=== PATIENT | female | born 1960 | race Caucasian/White ===

== ENCOUNTER 2025-01-15 21:31 | Inpatient (IN) | payer MEDICAID ==
[~2025-01-15] VITALS: Ht 154.9 cm; Wt 54.4 kg
[2025-01-15 23:17] LABS: BASOPHILS # (AUTO) 0.1 K/uL (0.0-0.2); BASOPHILS % (AUTO) 1.2 % (0.0-2.0); EOSINOPHILS # (AUTO) 0.1 K/uL (0.0-0.7); HEMATOCRIT 41 % (33-45); HEMOGLOBIN 14.1 g/dL (11.5-14.8); LYMPHOCYTES # (AUTO) 1.8 K/uL (0.8-4.8); MEAN CORPUSCULAR HEMOGLOBIN 31 PG (26.0-33.0); MEAN CORPUSCULAR HGB CONC 34 g/dl (31.0-36.0); MEAN CORPUSCULAR VOLUME 90 fL (82-100); MONOCYTES # (AUTO) 0.4 K/uL (0.1-1.30); MONOCYTES % (AUTO) 8.9 % (2.0-12.0); NEUTROPHILS # (AUTO) 2.6 K/uL (1.8-8.9); NEUTROPHILS % (AUTO) 51.9 % (43.0-81.0); PLATELET COUNT (AUTO) 259 K/uL (150-450); RED BLOOD CELL COUNT(AUTO) 4.56 MIL/uL (4.0-5.2); RED CELL DISTRIBUTION WIDTH 13.8 % (11.5-15.0)
[2025-01-15 23:50] LABS: CALCIUM, SERUM 9.3 mg/dL (8.5-10.1); CREATININE 0.8 mg/dL (0.6-1.3); POTASSIUM 3.9 mmol/L (3.5-5.1)
[2025-01-16] MEDS ORDERED: LEVETIRACETAM (500MG) 500 MG/5 ML VIAL IV ONE (00:01)
[2025-01-16] MEDS: LEVETIRACETAM (500MG) 500 MG in IV NS 0.9% 100 ML IV SCH (00:03)
[2025-01-16 00:04] LABS: BILIRUBIN,TOTAL 0.6 mg/dL (0.2-1.0); TOTAL PROTEIN, SERUM 7.1 g/dL (6.4-8.2)
[2025-01-16 01:41] LABS: APPEARANCE,URINE CLEAR (CLEAR); BILIRUBIN,URINE NEGATIVE (NEGATIVE); BLOOD, URINE NEGATIVE Ery/uL (NEGATIVE); COLOR,URINE YELLOW (YELLOW); KETONES,URINE NEGATIVE (NEGATIVE); LEUKOCYTE ESTERASE ,URINE 2+ (NEGATIVE); NITRITE, URINE POSITIVE (NEGATIVE); PH,URINE 6.5 (5.0-8.0); PROTEIN,URINE NEGATIVE (NEGATIVE); UGLUCOSE NEGATIVE (NEGATIVE); UROBILINOGEN,URINE 0.2 EU/dL (0.2)
[2025-01-16 02:04] LABS: RBC,URINE 0-2 /HPF (0-2); WBC,URINE 21-50 /HPF (0-3)
[2025-01-16 02:05] LABS: ADD URINE CULTURE YES; BACTERIA,URINE Many /HPF (None Seen)
[2025-01-16 02:30] VITALS: BP 146/73; TEMP 97.7; O2SAT 99
[2025-01-16] MEDS ORDERED: MAG HYDROX/AL HYDROX/SIMETH 30 ML UDC PO PRN (02:30)
[2025-01-16] MEDS ORDERED: TEMAZEPAM 15 MG CAPSULE PO PRN (02:30)
[2025-01-16] MEDS ORDERED: LORAZEPAM INJ 2 MG/ML VIAL IV PRN (02:30)
[2025-01-16] MEDS ORDERED: MAGNESIUM HYDROXIDE 30 ML UDC PO PRN (02:30)
[2025-01-16] MEDS ORDERED: HYDROCODONE/APAP 5/325MG TABLET PO PRN (02:30)
[2025-01-16] MEDS ORDERED: ONDANSETRON HCL/PF 4 MG/2 ML VIAL IVP PRN (02:30)
[2025-01-16] MEDS ORDERED: Z GUARD REMEDY 4 OZ OINT TP PRN (02:30)
[2025-01-16] MEDS: CEFTRIAXONE 1GM BAG (ER ONLY) 50 ML IV ONE (02:43)
[2025-01-16] MEDS: IV NS 0.9% 1,000 ML IV PRN (02:46)
[2025-01-16] MEDS: CEFTRIAXONE 1 G in IV D5W 50 ML IV STA (02:47)
[2025-01-16] MEDS ORDERED: CEFTRIAXONE 1 G in IV D5W 50 ML IV SCH ×3 (03:00→23:00)
[2025-01-16 04:00] VITALS: BP 128/67; TEMP 97.5; O2SAT 99
[2025-01-16] MEDS: ACETAMINOPHEN 325 MG TABLET PO PRN (06:45)
[2025-01-16] MEDS: PANTOPRAZOLE 40 MG TABLET.DR PO SCH (07:40)
[2025-01-16 08:00] VITALS: BP 116/65; TEMP 97.7; O2SAT 100
[2025-01-16] MEDS: LEVETIRACETAM (500MG) 1,000 MG in IV NS 0.9% 90 ML IV SCH (08:38)
[2025-01-16] MEDS: ENOXAPARIN SODIUM 40 MG/0.4 ML DISP.SYRIN SQ SCH (09:12)
[2025-01-16] MEDS ORDERED: LEVE500T20 PO (09:17)
[2025-01-16] MEDS ORDERED: MAGN400T52 PO (09:17)
[2025-01-16] MEDS ORDERED: CALC-953 PO (09:17)
[2025-01-16] MEDS ORDERED: POLY15DR31 EACHEYE (09:17)
[2025-01-16] MEDS ORDERED: ALEN70TA80 PO (09:17)
[2025-01-16] MEDS ORDERED: SERT25TA5 PO (09:17)
[2025-01-16] MEDS ORDERED: ACET-637 PO (09:17)
[2025-01-16] MEDS ORDERED: ACET325T53 PO (09:17)
[2025-01-16] MEDS ORDERED: DICL100G34 TP (09:17)
[2025-01-16] MEDS ORDERED: LAMO100T17 PO (09:17)
[2025-01-16] MEDS ORDERED: ACETAMINOPHEN ES 500 MG TABLET PO PRN (10:30)
[2025-01-16] MEDS: SERTRALINE HCL 25 MG TABLET PO SCH (11:26)
[2025-01-16 12:24] VITALS: BP 126/70; TEMP 98.1; O2SAT 100
[2025-01-16 14:33] LABS: THYROID STIMULATING HORMONE 1.26 uIU/mL (0.358-3.74)
[2025-01-16 16:00] VITALS: BP 121/70; TEMP 98.2; O2SAT 96
[2025-01-16] MEDS: LEVETIRACETAM (250 MG) 250 MG TABLET PO SCH (16:32)
[2025-01-16 20:00] VITALS: BP 117/68; TEMP 98.6; O2SAT 99
[2025-01-16] MEDS: CEFTRIAXONE 1 G in IV D5W 50 ML IV SCH (22:23)
[2025-01-17] VITALS: BP_SYST 105; BP_SYST 117; BP_DIAS 47; BP_DIAS 68; TEMP 98.1; TEMP 98.6; O2SAT 99
[2025-01-17 04:00] VITALS: BP 115/69; TEMP 97.7; O2SAT 98
[2025-01-17 07:26] LABS: BASOPHILS % (AUTO) 0.9 % (0.0-2.0); EOSINOPHILS # (AUTO) 0.1 K/uL (0.0-0.7); HEMATOCRIT 42 % (33-45); HEMOGLOBIN 14.2 g/dL (11.5-14.8); LYMPHOCYTES # (AUTO) 1.3 K/uL (0.8-4.8); LYMPHOCYTES % (AUTO) 30.1 % (20.0-44.0); MEAN CORPUSCULAR HEMOGLOBIN 31 PG (26.0-33.0); MEAN CORPUSCULAR HGB CONC 34 g/dl (31.0-36.0); MEAN CORPUSCULAR VOLUME 91 fL (82-100); MONOCYTES # (AUTO) 0.3 K/uL (0.1-1.30); MONOCYTES % (AUTO) 7.5 % (2.0-12.0); NEUTROPHILS # (AUTO) 2.5 K/uL (1.8-8.9); NEUTROPHILS % (AUTO) 58.5 % (43.0-81.0); PLATELET COUNT (AUTO) 236 K/uL (150-450); RED BLOOD CELL COUNT(AUTO) 4.66 MIL/uL (4.0-5.2); RED CELL DISTRIBUTION WIDTH 13.6 % (11.5-15.0); WHITE BLOOD COUNT (AUTO) 4.3 K/uL (4.3-11.0)
[2025-01-17 07:43] LABS: CALCIUM, SERUM 8.4 mg/dL (8.5-10.1); CREATININE 0.7 mg/dL (0.6-1.3); MAGNESIUM 2.3 mg/dL (1.8-2.4); PHOSPHORUS 3.5 mg/dL (2.5-4.9); POTASSIUM 3.9 mmol/L (3.5-5.1)
[2025-01-17 07:50] LABS: THYROID STIMULATING HORMONE 2.27 uIU/mL (0.358-3.74)
[2025-01-17 08:00] VITALS: BP 124/63; TEMP 98.1; O2SAT 99
[2025-01-17] MEDS: LamoTRIgine 100 MG TABLET PO SCH (08:17)
[2025-01-17] MEDS: MAGNESIUM OXIDE 400 MG TABLET PO SCH (08:17)
[2025-01-17 12:00] VITALS: BP 117/61; TEMP 98.1; O2SAT 98
[2025-01-17 16:00] VITALS: BP 124/66; TEMP 97.9; O2SAT 97
[2025-01-17 20:00] VITALS: BP_SYST 104; BP_SYST 124; BP_DIAS 67; TEMP 97.7; O2SAT 95
[2025-01-18] VITALS: BP 122/63; TEMP 98.1; O2SAT 100
[2025-01-18 00:25] VITALS: TEMP 98.1
[2025-01-18 04:00] VITALS: BP 113/64; TEMP 98; O2SAT 98
[2025-01-18 07:39] LABS: BASOPHILS % (AUTO) 0.9 % (0.0-2.0); EOSINOPHILS # (AUTO) 0.1 K/uL (0.0-0.7); EOSINOPHILS % (AUTO) 3.2 % (0.0-6.0); HEMATOCRIT 42 % (33-45); HEMOGLOBIN 14.1 g/dL (11.5-14.8); LYMPHOCYTES # (AUTO) 1.4 K/uL (0.8-4.8); LYMPHOCYTES % (AUTO) 32.7 % (20.0-44.0); MEAN CORPUSCULAR HEMOGLOBIN 30 PG (26.0-33.0); MEAN CORPUSCULAR HGB CONC 33 g/dl (31.0-36.0); MEAN CORPUSCULAR VOLUME 91 fL (82-100); MONOCYTES # (AUTO) 0.3 K/uL (0.1-1.30); MONOCYTES % (AUTO) 8.2 % (2.0-12.0); NEUTROPHILS # (AUTO) 2.3 K/uL (1.8-8.9); PLATELET COUNT (AUTO) 236 K/uL (150-450); RED BLOOD CELL COUNT(AUTO) 4.63 MIL/uL (4.0-5.2); RED CELL DISTRIBUTION WIDTH 13.6 % (11.5-15.0); WHITE BLOOD COUNT (AUTO) 4.2 K/uL (4.3-11.0)
[2025-01-18 07:57] LABS: CALCIUM, SERUM 8.7 mg/dL (8.5-10.1); CREATININE 0.6 mg/dL (0.6-1.3); POTASSIUM 3.8 mmol/L (3.5-5.1)
[2025-01-18 08:10] LABS: FOLIC ACID 15.8 ng/mL (>3.0)
== END 2025-01-18 13:00 | DRG 53 ==
LOC: ER 21:36 → TELE 01-16 01:39
PROVIDERS: ADMIT Nurse Practitioner Acute Care; ATTEND Internal Medicine
DX: G40.909 Epilepsy, unspecified, not intractable, without status epilepticus (principal); F32.3 Major depressive disorder, single episode, severe with psychotic features; F03.90 Unspecified dementia, unspecified severity, without behavioral disturbance, psychotic disturbance, mood disturbance, and anxiety; N39.0 Urinary tract infection, site not specified; F03.93 Unspecified dementia, unspecified severity, with mood disturbance; Z95.0 Presence of cardiac pacemaker; I49.9 Cardiac arrhythmia, unspecified; B96.89 Other specified bacterial agents as the cause of diseases classified elsewhere
CPT/HCPCS: 36415; 70450-TC; 71045-TC; 80048-TC; 80053-TC; 80177; 81001; 82607-TC; 83735-TC; 83880; 83921; 84100-TC; 84425; 84443-TC; 84484-TC; 85025-TC; 87040-TC; 87081-TC; 87086-TC; 87186-TC; 97110-TC; 97116-TC; 97530-TC; A4223; G0378; J0696; J1650; J1953; J7030; J7060

== ENCOUNTER 2025-05-24 17:31 | Emergency (ER) | payer MEDICAID ==
[~2025-05-24] VITALS: Ht 147.3 cm; Wt 44.5 kg
[~2025-05-24 17:31] MED LIST: ACET-637 PO; ACET325T53 PO; ALEN70TA80 PO; CALC-953 PO; DICL100G34 TP; LAMO100T17 PO; LEVE500T20 PO; MAGN400T52 PO; POLY15DR31 EACHEYE; SERT25TA5 PO
[2025-05-24] MEDS ORDERED: ASPIRIN 81 MG TAB.CHEW ONE (18:02)
[2025-05-24] MEDS: ASPIRIN 81 MG TAB.CHEW PO ONE (18:05)
[2025-05-24 18:37] LABS: PLATELET COUNT (AUTO) 232 K/uL (150-450); RED BLOOD CELL COUNT(AUTO) 5.02 MIL/uL (4.0-5.2); RED CELL DISTRIBUTION WIDTH 14.0 % (11.5-15.0); WHITE BLOOD COUNT (AUTO) 5.3 K/uL (4.3-11.0)
[2025-05-24 18:47] LABS: CALCIUM, SERUM 9.4 mg/dL (8.5-10.1); CREATININE 0.7 mg/dL (0.6-1.3); SODIUM SERUM 141 mmol/L (136-145); UREA NITROGEN, BLOOD 18 mg/dL (7-18)
[2025-05-24 22:23] VITALS: BP 125/60; TEMP 98; O2SAT 98
== END 2025-05-24 22:24 | disposition home or self-care (01) ==
LOC: ER 17:38
DX: R07.89 Other chest pain (principal); F03.90 Unspecified dementia, unspecified severity, without behavioral disturbance, psychotic disturbance, mood disturbance, and anxiety; F32.A Depression, unspecified; Z79.899 Other long term (current) drug therapy
CPT/HCPCS: 36415; 71045-TC; 80048-TC; 84484-TC; 85025-TC

== ENCOUNTER 2025-09-26 06:05 | Inpatient (IN) | payer MEDICAID ==
[~2025-09-26] VITALS: Ht 154.9 cm; Wt 55.3 kg
[2025-09-26] MEDS ORDERED: PANT40TA2 PO (06:25)
[2025-09-26] MEDS ORDERED: SERT25TA PO (06:25)
[2025-09-26] MEDS ORDERED: HYDR-3972 PO (06:25)
[2025-09-26] MEDS ORDERED: DIVA-78 PO (06:25)
[2025-09-26 06:42] LABS: PLATELET COUNT (AUTO) 218 K/uL (150-450); RED BLOOD CELL COUNT(AUTO) 4.85 MIL/uL (4.0-5.2); RED CELL DISTRIBUTION WIDTH 13.9 % (11.5-15.0); WHITE BLOOD COUNT (AUTO) 6.5 K/uL (4.3-11.0)
[2025-09-26 06:52] LABS: CALCIUM, SERUM 9.3 mg/dL (8.5-10.1); CREATININE 0.7 mg/dL (0.6-1.3); SODIUM SERUM 140 mmol/L (136-145); UREA NITROGEN, BLOOD 18 mg/dL (7-18)
[2025-09-26 06:54] LABS: PHOSPHORUS 2.7 mg/dL (2.5-4.9)
[2025-09-26 06:56] LABS: ALCOHOL, BLOOD < 10 mg/dL (0-10)
[2025-09-26] MEDS ORDERED: DIVA-76 PO (08:01)
[2025-09-26] MEDS ORDERED: CRAN425C6 PO (08:01)
[2025-09-26] MEDS ORDERED: MAGN400O6 PO (08:01)
[2025-09-26 08:22] VITALS: O2SAT 97
[2025-09-26 08:22] LABS: APPEARANCE,URINE CLEAR (CLEAR); BLOOD, URINE TRACE-INTA Ery/uL (NEGATIVE); LEUKOCYTE ESTERASE ,URINE NEGATIVE (NEGATIVE); NITRITE, URINE NEGATIVE (NEGATIVE); UGLUCOSE NEGATIVE (NEGATIVE)
[2025-09-26 08:27] LABS: ADD URINE CULTURE NO; SQUAMOUS EPITHELIAL CELL,UR Moderate /HPF (None Seen)
[2025-09-26 08:31] LABS: AMPHETAMINE, URINE NEGATIVE (NEGATIVE); BARBITURATE, URINE NEGATIVE (NEGATIVE); BENZODIAZEPINE, URINE NEGATIVE (NEGATIVE); CANNABINOID, URINE NEGATIVE (NEGATIVE); COCCAINE, URINE NEGATIVE (NEGATIVE); OPIATE, URINE NEGATIVE (NEGATIVE)
[2025-09-26] MEDS: PANTOPRAZOLE 40 MG TABLET.DR PO SCH (10:00)
[2025-09-26] MEDS ORDERED: DIVALPROEX SODIUM 250 MG TABLET.DR PO SCH (10:00)
[2025-09-26] MEDS: LORAZEPAM INJ 2 MG/ML VIAL IV ONE (10:04)
[2025-09-26] MEDS ORDERED: MAGNESIUM HYDROXIDE 30 ML UDC PO PRN (11:00)
[2025-09-26] MEDS ORDERED: ONDANSETRON HCL/PF 4 MG/2 ML VIAL IVP PRN (11:00)
[2025-09-26] MEDS ORDERED: IV 1/2NS 1000 ML 1,000 ML IV PRN (11:00)
[2025-09-26] MEDS ORDERED: ZOLPIDEM TARTRATE 5 MG TABLET PO PRN (11:00)
[2025-09-26] MEDS ORDERED: Z GUARD REMEDY 4 OZ OINT TP PRN (11:00)
[2025-09-26] MEDS ORDERED: ACETAMINOPHEN 325 MG TABLET PO PRN (11:00)
[2025-09-26] MEDS ORDERED: MAG HYDROX/AL HYDROX/SIMETH 30 ML UDC PO PRN (11:00)
[2025-09-26] MEDS: IV NS 0.9% 1,000 ML IV PRN (11:28)
[2025-09-26 11:30] VITALS: BP 116/60; TEMP 97.9; O2SAT 100
[2025-09-26 11:33] LABS: LDL 133 mg/dL (0-99)
[2025-09-26] MEDS: DIVALPROEX SODIUM 500 MG TABLET.DR PO SCH (13:35)
[2025-09-26 16:00] VITALS: BP 129/70; TEMP 97.3; O2SAT 100
[2025-09-26 17:29] VITALS: BP 147/96; TEMP 98.4; O2SAT 98
[2025-09-26 20:00] VITALS: BP 125/76; TEMP 98.8; O2SAT 97
[2025-09-27] VITALS: BP 125/76; TEMP 97.9; O2SAT 97
[2025-09-27] MEDS: OLANZAPINE 10 MG VIAL IM ONE (02:16)
[2025-09-27 04:00] VITALS: BP 133/72; TEMP 97.5; O2SAT 99
[2025-09-27] MEDS ORDERED: PANTOPRAZOLE 40 MG TABLET.DR PO SCH (07:30)
[2025-09-27 08:00] VITALS: BP 127/75; TEMP 97.5; O2SAT 99
[2025-09-27 10:23] LABS: PLATELET COUNT (AUTO) 191 K/uL (150-450); RED BLOOD CELL COUNT(AUTO) 4.57 MIL/uL (4.0-5.2); RED CELL DISTRIBUTION WIDTH 13.8 % (11.5-15.0); WHITE BLOOD COUNT (AUTO) 5.7 K/uL (4.3-11.0)
[2025-09-27 11:04] LABS: ASPARTATE AMINOTRANSFERASE 25.0 U/L (15-37); CALCIUM, SERUM 8.4 mg/dL (8.5-10.1); CREATININE 0.9 mg/dL (0.6-1.3); PHOSPHORUS 2.2 mg/dL (2.5-4.9); SODIUM SERUM 146.0 mmol/L (136-145); TOTAL PROTEIN, SERUM 6.9 g/dL (6.4-8.2); UREA NITROGEN, BLOOD 6.0 mg/dL (7-18)
[2025-09-27] MEDS: POTASSIUM CHLORIDE 20 MEQ TAB.PRT.SR PO ONE (11:58)
== END 2025-09-27 14:57 | DRG 53 ==
LOC: ER 06:10 → TELE 08:05 → MED 08:57 → TELE 09:19 → MED 09-27 09:58
DX: G40.909 Epilepsy, unspecified, not intractable, without status epilepticus (principal); G93.89 Other specified disorders of brain; F03.90 Unspecified dementia, unspecified severity, without behavioral disturbance, psychotic disturbance, mood disturbance, and anxiety; F39 Unspecified mood [affective] disorder; R55 Syncope and collapse; Z95.0 Presence of cardiac pacemaker; Z79.899 Other long term (current) drug therapy
CPT/HCPCS: 36415; 70450-TC; 71045-TC; 80048-TC; 80053-TC; 80061-TC; 80164-TC; 81001; 82962-TC; 83735-TC; 84100-TC; 84443-TC; 84484-TC; 85025-TC; 87081-TC; 92526; 92611; 93307-TC; 97110-TC; 97116-TC; 97530-TC; A4223; G0378; G0480; J2060; J3490; J7030